=== PATIENT | male | born 1955 | race Caucasian/White ===

== ENCOUNTER 2021-07-24 17:43 | Emergency (ER) | payer SELFPAY ==
[~2021-07-24] VITALS: Ht 182.9 cm; Wt 81.6 kg
[2021-07-24] MEDS ORDERED: HYDROCODONE/APAP 5-325MG TABLET PO ONE (18:00)
--- NOTE | 2021-07-24 18:05 | NUR ---
PT IS IN ROOM #2B. DR ROMERO EVALUATED THE PT.
[2021-07-24] MEDS ORDERED: HYDROCODONE/APAP 5-325MG TABLET ONE (18:18)
[2021-07-24] MEDS ORDERED: MUPI22OI2 TP (19:11)
[2021-07-24] MEDS ORDERED: HYDR-3980 PO ×2 (19:11→19:18)
--- NOTE | 2021-07-24 19:26 | NUR ---
Patient given written and verbal discharge instructions. Patient verbalizes understanding of instructions. Patient is ambulatory with steady gait. Refuses offer of longterm placement. Patient given list of available shelters in surrounding area. Patient offered resources, but did not want to sign papers. Patient A/Ox4, able to ambulate with steady gait. Requesting to return to streets for discharge.
[2021-07-24 19:27] VITALS: BP 141/88
== END 2021-07-24 19:28 | disposition home or self-care (01) ==
LOC: ER 17:44
DX: S22.31XA Fracture of one rib, right side, initial encounter for closed fracture (principal); Y00.XXXA Assault by blunt object, initial encounter; Y92.89 Other specified places as the place of occurrence of the external cause; L73.9 Follicular disorder, unspecified; Z59.01 Sheltered homelessness; F17.210 Nicotine dependence, cigarettes, uncomplicated; Z88.2 Allergy status to sulfonamides; T14.8XXA Other injury of unspecified body region, initial encounter
CPT/HCPCS: 71250; A4663